=== PATIENT | male | born 1950 | race Caucasian/White ===

== ENCOUNTER → 2020-11-09 12:19 | Outpatient (CLI) | payer MEDICARE, SELFPAY ==
--- NOTE | ~2020-11-09 | MR_ITS ---
EXAMINATION: MR shoulder RT wo con DATE: 11/09/2020 12:56 INDICATION: Acute onset right shoulder pain TECHNIQUE: Magnetic resonance imaging (MRI) of the right shoulder was performed without intravenous c ontrast. Sequences included axial PD-weighted FS FSE, coronal oblique PD-weighted FS FSE, coronal obl ique T2-weighted FS FSE, sagittal PD-weighted FS FSE, and sagittal T1-weighted SE. COMPARISON: None. FINDINGS: Coracoacromial arch: The acromion undersurface is curved in morphology (type II) with thinned acromion and surrounding scl erosis of susceptibility artifact consistent with prior acromioplasty. There is also been prior dista l right clavicle excision. Rotator cuff: Magnetic field artifact associated with several likely suture anchors along the greater tuberosity wi th additional small likely suture anchor at the cephalad aspect of the lesser tuberosity. Recurrent f ull-thickness tear of the complete supraspinatus and infraspinatus tendons with at least 3.5 cm media l retraction of the frayed tear margin beyond the level of the apex of the humeral head. The teres mi nor tendon is normal. Severe tendinopathy of the distal subscapularis tendon. The distal tendon appea rs attenuated suggesting partial tear however a clearly defined tear defect is not appreciated. There is mild atrophy of the supraspinatus muscle belly which appears small and with concave cephalad nadine in at the level of the supraspinatus fossa. There is also mild fatty atrophy of the infraspinatus mus elizabeth belly. Biceps tendon, glenoid labrum and glenohumeral cartilage: There is tendinopathy and longitudinal split tearing of the long head biceps tendon caudal to the lev el of the intertubercular groove. The tendon is not clearly identified at the level of the groove luis ng its normal intra-articular course suggesting it is either torn or potentially tenodesis which migh t account for the suture anchor at the cephalad aspect of the lesser tuberosity. Correlate with surgi kelsea history. The anterior to anteroinferior labrum is small and there is irregular increased intrasub stance signal at the cephalad aspect of the glenoid labrum, both findings which could be related to e ither degenerative tearing or prior labral debridement. Nonuniform partial thickness cartilage loss a t the glenoid as well as at the cephalad and inferomedial aspect of the humeral head. Deep fissuring without degenerative subchondral changes at the inferomedial aspect of the humeral head. Additional d eep fissuring with couple tiny foci of subarticular edema at the cephalad third of the glenoid. There are small marginal osteophytes along the anterior to superior glenoid. Fluid: Mild glenohumeral joint effusion with proportional extension of a small amount of fluid into the long head biceps tendon sheath. No loose osteochondral bodies. There is communication of the small joint effusion through the full-thickness rotator cuff tear with a small amount of fluid in the subacromial /subdeltoid bursa.. Bones: Cephalad subluxation of the humeral head with respect to the glenoid with narrowing of the subacromia l space with <2 mm separation of the cortical margins between the posterior superior humeral head and the undersurface of the posterolateral acromion. No fracture or pathologic marrow replacing process. Mild hypertrophic change at the lesser tuberosity. IMPRESSION: 1. Postoperative changes at the right shoulder including distal clavicle excision, acromioplasty, lik aquilino supraspinatus and infraspinatus tendon repair and possibly bicipital tenodesis. Correlate with de tails of surgical history. 2. Recurrent full-thickness tear involving essentially the entire supraspinatus and infraspinatus ten dons. 3. Severe subscapularis tendinopathy which appears attenuated distally suggesting partial thickness t ear although no discrete tear defect is appreciated. 4
== END ==
DX: M19.011 Primary osteoarthritis, right shoulder (principal); M75.121 Complete rotator cuff tear or rupture of right shoulder, not specified as traumatic
CPT/HCPCS: 73221